=== PATIENT | female | born 1995 | race Caucasian/White ===

== ENCOUNTER 2021-01-25 10:16 | Outpatient (CLI) | payer OTHER, SELFPAY ==
[2021-01-25 11:43] LABS: HIV 1/2 Ab P24 Ag Result Negative (Negative)
== END 2021-01-25 10:17 | disposition home or self-care (01) ==
LOC: ANHLAB 10:22
PROVIDERS: Visit Provider Obstetrics & Gynecology Gynecology
DX: Z36.9 Encounter for antenatal screening, unspecified (principal); Z3A.00 Weeks of gestation of pregnancy not specified
CPT/HCPCS: 36415; 86703; G0432

== ENCOUNTER 2021-02-10 06:05 | Inpatient (IN) | payer OTHER, SELFPAY ==
[2021-02-10] VITALS (165 sets, daily range): BP systolic 88–142; BP diastolic 38–104; PULSE 66–199; RESP 16–20; TEMP 36.1–37.6; O2SAT 93–100; BMI 38.6
--- NOTE | 2021-02-10 06:05 | LDADM ---
This patient, Zaida Segura, was admitted to Labor/Delivery/Recovery 103 on 02/10/21 at 06:05. Plans for labor, pain management and were discussed with patient. Patient/family oriented to hospital policies and general routines including ID bracelet, bed and alarms, visiting hours, pain management, procedures, bathroom and other care routines, personal items, smoking policy, room service/diet and guest tray routines, security routines, and visiting hours. Patient/Family are encouraged to report perceived risks to care and to ask questions if they do not understand what they are told or what they should do. See OBIX for further documentation.
[2021-02-10 07:00] LABS: Basophils Absolute Auto 0.1 K/mm3 (0.0-0.1); Basophils Percent Auto 0.4 % (0.2-1.2); Eosinophils Absolute Auto 0.1 K/mm3 (0-0.3); Eosinophils Percent Auto 0.6 % (0-4.4); Hematocrit 35.1 % (37.0-47.0); Hemoglobin 11.6 g/dL (12.0-15.0); Immature Granulocyte Absolute 0.08 K/mm3 (0.00-0.031); Immature Granulocyte Percent A 0.7 % (0-0.5); Lymphocytes Absolute Auto 2.15 K/mm3 (0.9-3.2); Lymphocytes Percent Auto 18.1 % (18.3-44.2); Mean Corpuscular Hemoglobin 29.2 pg (26-34); Mean Corpuscular Volume 88.4 fl (80-100); Mean Platelet Volume 9.3 fl (7.4-10.4); Monocytes Absolute Auto 0.6 K/mm3 (0.1-0.6); Monocytes Percent Auto 4.9 % (2.6-8.5); Neutrophils Percent Auto 75.3 % (45.5-73.1); Platelet Count Result 334 k/mm3 (150-375); Red Blood Count 3.97 M/mm3 (4.2-5.4); Red Cell Distribution Width 13.5 % (11.5-14.5); White Blood Count 11.9 K/mm3 (4.5-10.0)
--- NOTE | 2021-02-10 07:18 | P.PNAN_ITS ---
Anes - Eval Pre Procedure Procedure: labor epidural Date/Time: 02/10/21 07:18 Surgeon: inocencio Preop Diagnosis: pain during labor Pre Op Diagnosis: IOL Patient Data Age: 25 Gender: F Height: Weight: Last Vital Signs Pulse 87 02/10/21 07:01 BP 115/71 02/10/21 07:01 Allergies Allergy/AdvReac Type Severity Reaction Status Date / Time No Known Allergies Allergy Verified 01/15/21 13:41 Home Medications Medication Instructions Recorded Confirmed Type aspirin [Aspirin Low Dose] 81 mg PO DAILY 01/15/21 01/15/21 History prenat.vits,mervin,[id number] 1 tablet PO DAILY 01/15/21 01/15/21 History [ #2] Laboratory Tests 02/10/21 02/10/21 06:24 06:24 WBC 11.9 K/mm3 H K/mm3 (4.5-10.0) RBC 3.97 M/mm3 L M/mm3 (4.2-5.4) Hgb 11.6 g/dL L g/dL (12.0-15.0) Hct 35.1 % L % (37.0-47.0) MCV 88.4 fl fl (80-100) MCH 29.2 pg pg (26-34) MCHC 33.0 g/dl g/dl (32-36) RDW 13.5 % % (11.5-14.5) Plt Count 334 k/mm3 k/mm3 (150-375) MPV 9.3 fl fl (7.4-10.4) Immature Gran % (Auto) 0.7 % H % (0-0.5) Neut % (Auto) 75.3 % H % (45.5-73.1) Lymph % (Auto) 18.1 % L % (18.3-44.2) [place] % (Auto) 4.9 % % (2.6-8.5) Eos % (Auto) 0.6 % % (0-4.4) Baso % (Auto) 0.4 % % (0.2-1.2) Lymph # (Auto) 2.15 K/mm3 K/mm3 (0.9-3.2) [place] # (Auto) 0.6 K/mm3 K/mm3 (0.1-0.6) Eos # (Auto) 0.1 K/mm3 K/mm3 (0-0.3) Baso # (Auto) 0.1 K/mm3 K/mm3 (0.0-0.1) Abs Immat Gran (auto) 0.08 K/mm3 H K/mm3 (0.00-0.031) Absolute Neuts (auto) 9.0 K/mm3 H K/mm3 (1.3-6.7) Absolute Nucleated RBC 0.0 K/mm3 K/mm3 (0.0-0.012) Nucleated RBC % 0.0 % % (0.0-0.2) RPR Pending Patient hx anesthesia problems: none Family hx anesthesia problems: none [facility] Past Medical History Medical History (Updated 02/10/21 @ 07:18 by Kathy Deleon CRNA) IUP (intrauterine ), incidental Family History Family History (Updated 01/15/21 @ 13:44 by Will Bliss RN) Sibling Hypertension Grandparent Hypertension Social History Social History Substance use: never Spiritual care concerns: No Exam Day of Procedure 02/10/21 07:18
[2021-02-10] MEDS: LACTATED RINGERS 1,000 ML 125 ML IV CONT ×2 (07:40→13:41)
[2021-02-10] MEDS: AMPICILLIN 2 GM/NS 100 ML 2 GM/100 ML BAG IVPB (07:43)
[2021-02-10] MEDS: OXYTOCIN 30 UNITS/NS 500 ML 30 UNITS/500 ML BAG 6 UNITS IV CONT (07:44)
[2021-02-10 09:26] LABS: HIV 1/2 Ab P24 Ag Result Negative (Negative)
[2021-02-10] MEDS: AMPICILLIN 1 GM/NS 50 ML 1 GM/50 ML BAG IVPB ×2 (11:49→15:43)
[2021-02-10] MEDS: fentaNYL CITRATE INJ (*CRX) 100 MCG/2 ML VIAL 50 MCG IV PUSH (12:16)
[2021-02-10] MEDS: PHENYLEPHRINE 1,000 MCG/10 ML SYRINGE 100 MCG IV PUSH ×2 (14:49→14:57)
--- NOTE | 2021-02-10 19:09 | PM.OBPRVD ---
OB - Delivery Note Procedure Delivery date: 02/10/21 Procedure: events: Labor Induction Intrapartal events: None Induction method: AROM and per pitocin protocol Delivery monitor: external FHT, external uterine and internal uterine Route of delivery: Laceration Description: None Delivery repair: vicryl Specimen: Yes Quantitative Blood Loss (ml): 110 Anesthesia type: Epidural Disposition: floor Baby Date of : 02/10/21 Time of : 18:56 Weeks of gestation at delivery: 39 gender: Female Weight (pounds): 6 Weight (ounces): 6 presentation: vertex position: Left Occiput Anterior Placenta delivery description: Spontaneous cord vessel description: 3 Vessels and Around Body x1 score one minute: 8 score five minutes: 9
[2021-02-10] MEDS: OXYTOCIN 30 UNITS/NS 500 ML 30 UNITS/500 ML BAG 125 UNITS IV CONT (19:27)
[2021-02-10] MEDS: WITCH HAZEL 40 PADS 1 PAD TOPICAL (21:17)
[2021-02-10] MEDS: BENZOCAINE 20% AER SPR (*SP) 56 GM CAN 1 SPRAY TOPICAL (21:17)
--- NOTE | 2021-02-10 21:35 | OBPPTRN ---
Patient transferred to post room # 285 via wheelchair. Support person present. Oriented to unit, room, information board, rooming in, admission packet and security measures. Patient verbalizes understanding.
[2021-02-10] MEDS: ACETAMINOPHEN 325 MG TABLET 650 MG PO (21:43)
[2021-02-11 03:28] VITALS: BP 129/80; PULSE 77; RESP 16; TEMP 36.5; O2SAT 100
[2021-02-11] MEDS: IBUPROFEN 600 MG TABLET PO ×2 (03:31→19:12)
[2021-02-11 05:03] LABS: Hemoglobin 10.7 g/dL (12.0-15.0)
[2021-02-11 08:05] VITALS: BP 110/64; PULSE 78; RESP 18; TEMP 36.6; O2SAT 99
[2021-02-11] MEDS: MULTIVIT/MIN/PREN/FOL AC/IRON TABLET 1 TAB PO (09:04)
[2021-02-11] MEDS: ACETAMINOPHEN 325 MG TABLET 650 MG PO (09:04)
[2021-02-11 09:05] LABS: Rapid Plasma Reagin Non-Reactive (NonReactive)
--- NOTE | 2021-02-11 10:15 | PC.NURSE ---
Mother called out for assist with feeding. Mother has at breast using nipple shield. Latch is shallow, shield was off center and is sleepy with short chewy suckling noted. Mother states she was given the nipple shield to help infant latch. Mother appears to have flat nipples. Discussed nipple shield precautions and possible complications. Instructions given on application and cleaning of shield. Discussed the need to initiate pumping if continues to nurse with the shield. Patient verbalizes understanding. Reviewed infant feeding cues, frequencies, duration of feedings, feeding elimination flow sheet, and signs of adequate intake. Demonstrated stimulation techniques to wake for feeding. Requested mother release latch. Assisted with correct placement of shield. Reviewed positioning/alignment in football, holding breast in ?C? hold and guided asymmetrical latch on. Discussed rational for each. able to latch correctly. Infant nursed sleepily with short chewy sucking, long pausing noted. Suggested mother stimulate while feeding to increase stimulate, increase intake and to assist with maintaining deep latch. Reviewed signs of a correct latch, effective nursing and suck swallow ratio. Infant did not respond to stimulation. Discussed the difference of effective vs ineffective nursing. Advised is not transferring milk/colostrum at this time. Suggested mother continue to supplement after each attempt and initiate pumping. Mother reports she has her own pump and she would prefer to use. Offered to assist with set up, mother reports she has used the pump and comfortable with use. Instructed mother to call out for RN assistance if she is unable to latch infant for feeding or she has discomfort with nursing.
[2021-02-11 11:57] VITALS: BP 100/60; PULSE 75; RESP 16; TEMP 36.6; O2SAT 97
[2021-02-11 16:45] VITALS: BP 110/70; PULSE 68; RESP 16; TEMP 36.3
--- NOTE | 2021-02-11 17:22 | P.PNOB_ITS ---
OB - PN: Subj Subjective Date/time seen: 02/11/21 17:22 doing well no complaints OB - PN: Obj Data Labs CBC & Chem 7: 02/11/21 03:37 Labs: Laboratory Results - last 24 hr 02/10/21 02/11/21 06:24 03:37 Hgb 10.7 L Hct 33.0 L RPR Non-reactive OB - PN A/P Assessment and Plan (1) (normal spontaneous vaginal delivery): Code(s): O80 - Encounter for full-term uncomplicated delivery Status: Acute Assessment and Plan: contine with care. Time Spent With Patient Time: Total time spent is greater than 50% in coordination of care (as documente d) at patient's floor/unit and/or counseling patient: Exam Narrative: ff below umbilicus
[2021-02-11 20:00] VITALS: BP 124/61; PULSE 68; RESP 16; TEMP 36.8; O2SAT 99
[2021-02-12] MEDS: MULTIVIT/MIN/PREN/FOL AC/IRON TABLET 1 TAB PO (08:10)
[2021-02-12 08:20] VITALS: BP 121/41; PULSE 74; RESP 18; TEMP 36.4; O2SAT 99
--- NOTE | 2021-02-12 10:30 | PC.NURSE ---
Patient instructed to view the discharge video Mother & Baby Care, The First Two Weeks . Patient was given the opportunity and encouraged to ask questions. Patient verbalized understanding of information shared and has been given the mother/baby guide for home reference.
[2021-02-13 08:59] VITALS: BP 116/65; PULSE 76; RESP 16; TEMP 36.9; O2SAT 99
--- NOTE | 2021-02-22 12:09 | PM.OBDSVD ---
DS: Admitting Diagnosis Admitting Diagnosis iol OB - DS: Summary OB Procedures : Ultrasound OB Procedures Intrapartum: Spontaneous Vag Delivery OB Procedures: : None Time Spent with Patient Time attestation: Total time spent providing and/or coordinating discharge services: Discharge Plan Discharge Attending physician on discharge: Alessandro Chambers Discharging Clinician: Alessandro Chambers Patient Disposition: Home, Self-Care Activity: may shower and may drive after 2 weeks Diet: regular Discharge Instructions: Education: Mom and Baby Guide and Preeclampsia Handout Given to: Mother Follow-Up: Call your delivering provider's office for an appointment to be seen in: 6 Weeks Mom and baby should come to the [facility] for the follow-up appointment. Appointment Date/Time: February 13, 2021 at 9:00 am What to expect at your follow-up visit: Physical Assessment Call [phone] if you are unable to keep your appointment time. BREAST CARE: * Wear a snug supportive bra. * For engorgement discomfort: Breast Feeding: * Apply warm moist washcloths * Express milk as needed to relieve engorgement * Wear loose clothing Bottle Feeding: * May apply ice packs * For sore nipples: * Identify correct latch-on * Apply warm moist washcloths before and after nursing * Air dry nipples after nursing * May apply Lansinoh cream to nipples EPISIOTOMY/PERINEAL CARE: * Until bleeding stops, use your madeline bottle after urinating * Change your pad frequently throughout the day * You may take sitz baths several times a day (fill your bathtub with warm water and soak for 20 minutes.) Do NOT bathe in the water * No tub baths until seen by your physician - You may shower ACTIVITY: * Rest as much as possible. * Do not exercise or lift anything heavier than your baby (such as laundry or other children.) * Avoid stairs or driving as much as possible. * Do not put anything into the vagina. No douching, tampons, or sexual activity until seen by physician. NOTIFY PHYSICIAN IF YOU HAVE ANY QUESTIONS OR IF ANY OF THE FOLLOWING SYMPTOMS OCCUR: * If your perineum becomes red, swollen, or more painful than what you have experienced in the hospital. * If your vaginal bleeding becomes foul smelling. * If your vaginal bleeding becomes more heavy than a period or if your bleeding changes from pink to bright red. However, you may pass an occasional walnut-sized clot once or twice for the first week . * If you experience a sharp, shooting pain in you calves. * If you discover a hard, reddened area on your breast or if you experience flu-like symptoms. DIET: * Eat regular, well-balanced meals. * Drink plenty of fluids daily. If , drink to thirst. Stand Alone Forms: General Discharge Information Follow-up/Referrals: Alessandro Chambers MD [Physician] - Discharge Medications: Continued prenat.vits,mervin,[id number] Tablet 1 tablet PO DAILY RF: 0 Discontinued aspirin [Aspirin Low Dose] 81 mg Tablet,Delayed Release (Dr/Ec) 81 mg PO DAILY RF: 0 Date of admission: 02/10/21 06:05 Primary Care Provider: PHYSICIAN,RN PROVIDER RELATIONS Admitting Provider: Alessandro Chambers Attending physician on admission: Alessandro Chambers Condition: Stable
== END 2021-02-12 11:20 | disposition home or self-care (01) | DRG 560 ==
LOC: ANHLDR 19:11 → ANHOB2 21:58
PROVIDERS: Admitting Provider Obstetrics & Gynecology; Visit Provider Obstetrics & Gynecology
DX: O99.824 Streptococcus B carrier state complicating childbirth (principal); Z37.0 Single live birth; Z3A.39 39 weeks gestation of pregnancy; O36.8330 Maternal care for abnormalities of the fetal heart rate or rhythm, third trimester, not applicable or unspecified; O69.2XX0 Labor and delivery complicated by other cord entanglement, with compression, not applicable or unspecified
CPT/HCPCS: 36415; 85014; 85018; 85025; 86592; 86703; 86850; 86900; 86901; A9270; G0432; J0290; J2370; J2590; J2795; J3010; J7120

== ENCOUNTER 2021-12-09 16:31 | Outpatient (NON) | payer OTHER, SELFPAY | END 2021-12-09 16:32 | disposition home or self-care (01) | LOC: ANHLAB 16:34 | PROVIDERS: Visit Provider Surgery | DX: L72.0 Epidermal cyst (principal) | CPT/HCPCS: 88304 ==